=== PATIENT | male | born 1995 ===

== ENCOUNTER 2018-07-19 21:58 | Emergency (ER) | payer OTHER ==
[2018-07-19 22:49] VITALS: BP 128/86; PULSE 104; RESP 18; TEMP 99.1; O2SAT 99
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
== END 2018-07-19 23:45 | disposition home or self-care (01) ==
LOC: C.ER 21:58
DX: M25.562 Pain in left knee (principal)